=== PATIENT | female | born 1970 | race Hispanic/Latino ===

== ENCOUNTER 2016-06-15 13:35 | Emergency (ER) | payer SELFPAY ==
[~2016-06-15 13:35] MED LIST: Iopamidol 370 76% 100 ML VIAL ONE
[2016-06-15] MEDS ORDERED: Ketorolac Tromethamine 30 MG/ML VIAL ONE (14:19)
[2016-06-15] MEDS ORDERED: Sodium Chloride 0.9% 1,000 ML ONE (14:19)
[2016-06-15 14:39] LABS: Bilirubin Negative (Negative); Blood, Urine Trace (Negative); Glucose, Urine (Dipstick) Negative (Negative); Ketone, Urine Trace mg/dL (Negative); Nitrite Negative (Negative); Protein, Urine (Dipstick) 30 mg/dL (Neg-Trace)
[2016-06-15 14:40] LABS: #Basophils 0.1 thou/uL (0.0-0.2); #Eosinphils 0.2 thou/uL (0.0-0.7); #Monocytes 0.5 thou/uL (0.11-0.59); #Neutrophils 3.3 thou/uL (1.40-6.50); %Basophils 1.4 % (0.0-1.0); %Eosinophils 4.3 % (0.0-10.0); %Lymphocytes 19.4 % (21.0-51.0); %Monocytes 10.3 % (0.0-10.0); Hematocrit 42.9 % (36.0-47.0); Mean Platelet Volume 9.5 fL (7.4-10.4); Red Blood Cell (RBC) Count 5.08 mill/uL (4.20-5.40); White Blood Cell (WBC) Count 5.2 thou/uL (4.8-10.8)
[2016-06-15 14:48] LABS: Bacteria/HPF 2+ HPF (None Seen); RBC/HPF 0-3 HPF (0-3)
[2016-06-15 14:56] LABS: ALT (SGPT) 66 U/L (0-55); AST (SGOT) 47 U/L (5-34); Alkaline Phosphatase 82 U/L (40-150); Anion Gap 18 mmol/L (10-20); BUN (Urea Nitrogen) 10 mg/dL (7.0-18.7); Bilirubin, Total 0.8 mg/dL (0.2-1.2); Calc. Creatinine Clearance 0 mL/min (70-130); Carbon Dioxide 24 mmol/L (22-29); Chloride 101 mmol/L (98-107); Estimated GFR-MDRD 45; Globulin 3.9 g/dL (2.4-3.5); Protein, Total 8.6 g/dL (6.0-8.3)
--- NOTE | 2016-06-15 18:49 | CT ---
CT ANGIO OF THE CHEST: History: Cough, fever, back pain. Comparison: None. Technique: CT angiogram of the chest performed after the intravenous administration of contrast. 3 D imaging provided. FINDINGS: No segmental pulmonary arterial filling defect. No dilatation of the thoracic aorta. Pulmonary rosy nk size is normal. No pericardial effusion. No evidence for aortic dissection. Calcified granuloma anterior segment right lower lobe. No focal consolidation or pneumothorax. Nodule is noted in the medial soft tissues left breast. This appears larger. Skeleton is unremarka ble. Limited evaluation of the upper abdomen is unremarkable. IMPRESSION: 1. No acute intrathoracic abnormality. No embolism. 2. Enlarging well defined nodule in the left medial breast. Mammographic and ultrasound correlatio n recommended. 3. Hepatic steatosis. 4. Calcified right hilar lymph nodes. Prior granulomatous disease is suspected. POS: [facility]
== END 2016-06-15 17:48 | disposition home or self-care (01) ==
LOC: NAV ERS 13:35
DX: S29.012A Strain of muscle and tendon of back wall of thorax, initial encounter (principal); J06.9 Acute upper respiratory infection, unspecified; J45.909 Unspecified asthma, uncomplicated; K21.9 Gastro-esophageal reflux disease without esophagitis; X58.XXXA Exposure to other specified factors, initial encounter
CPT/HCPCS: 71275; 80053; 81003; 81015; 85025; 85379; 87086; 96361; 96374; J1885; J7050

== ENCOUNTER 2016-09-16 08:37 | Emergency (ER) | payer SELFPAY | END 2016-09-16 08:59 | disposition home or self-care (01) | LOC: NAV ERS 08:37 | DX: J20.9 Acute bronchitis, unspecified (principal); J32.0 Chronic maxillary sinusitis; J45.909 Unspecified asthma, uncomplicated; K21.9 Gastro-esophageal reflux disease without esophagitis; Z79.899 Other long term (current) drug therapy | CPT/HCPCS: 99283 ==

== ENCOUNTER 2017-04-20 11:24 | Emergency (ER) | payer SELFPAY | END 2017-04-20 12:14 | disposition home or self-care (01) | LOC: NAV ERS 11:24 | DX: N93.9 Abnormal uterine and vaginal bleeding, unspecified (principal); J45.909 Unspecified asthma, uncomplicated; K21.9 Gastro-esophageal reflux disease without esophagitis | CPT/HCPCS: 99283 ==

== ENCOUNTER 2017-06-02 12:28 | Emergency (ER) | payer SELFPAY | END 2017-06-02 12:47 | disposition home or self-care (01) | LOC: NAV ERS 12:28 | DX: F43.0 Acute stress reaction (principal); K21.9 Gastro-esophageal reflux disease without esophagitis; J45.909 Unspecified asthma, uncomplicated | CPT/HCPCS: 99283 ==

== ENCOUNTER 2017-06-08 13:23 | Emergency (ER) | payer SELFPAY ==
[2017-06-08] MEDS ORDERED: Ibuprofen 200 MG TAB ONE (14:00)
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
== END 2017-06-08 14:29 | disposition home or self-care (01) ==
LOC: NAV ERS 13:23
DX: S16.1XXA Strain of muscle, fascia and tendon at neck level, initial encounter (principal); S29.011A Strain of muscle and tendon of front wall of thorax, initial encounter; K21.9 Gastro-esophageal reflux disease without esophagitis; J45.909 Unspecified asthma, uncomplicated; V44.5XXA Car driver injured in collision with heavy transport vehicle or bus in traffic accident, initial encounter
CPT/HCPCS: 71046

== ENCOUNTER 2017-09-16 10:46 | Emergency (ER) | payer SELFPAY | END 2017-09-16 11:20 | disposition home or self-care (01) | LOC: NAV ERS 10:46 | DX: L04.0 Acute lymphadenitis of face, head and neck (principal); H92.01 Otalgia, right ear; K21.9 Gastro-esophageal reflux disease without esophagitis; J45.909 Unspecified asthma, uncomplicated | CPT/HCPCS: 99283 ==

== ENCOUNTER 2017-10-13 21:48 | Emergency (ER) | payer SELFPAY ==
[2017-10-13] MEDS ORDERED: Adacel (T-DAP) 0.5 ML VIAL ONE (21:56)
--- NOTE | 2017-10-13 22:16 | RAD ---
LEFT FOOT: 10/13/17 Two views. HISTORY: Stepped on foreign body. Assess for foreign body. Small enthesophyte from the plantar calcaneus. No osseous abnormality identified. IMPRESSION: No evidence of radiopaque soft tissue foreign body identified. POS: [facility]
[2017-10-13] MEDS ORDERED: Sulfameth/Trimethoprim DS 800-160mg TAB ONE (22:27)
== END 2017-10-13 22:32 | disposition home or self-care (01) ==
LOC: NAV ERS 21:48
DX: S90.852A Superficial foreign body, left foot, initial encounter (principal); K21.9 Gastro-esophageal reflux disease without esophagitis; J45.909 Unspecified asthma, uncomplicated; W25.XXXA Contact with sharp glass, initial encounter
CPT/HCPCS: 90471; 90715

== ENCOUNTER 2018-01-26 16:33 | Emergency (ER) | payer SELFPAY ==
--- NOTE | 2018-01-26 19:49 | RAD ---
RIGHT HAND 3 VIEWS: Date: 01/26/18 HISTORY: Patient fell off bed a couple of days ago. Difficulty bending right thumb. COMPARISON: None. FINDINGS: No fracture. No cortical irregularity or periosteal reaction. Joint spaces are preserved. IMPRESSION: Unremarkable right hand 3 views. POS: [facility]
== END 2018-01-26 17:06 | disposition home or self-care (01) ==
LOC: NAV ERS 16:33
DX: S63.641A Sprain of metacarpophalangeal joint of right thumb, initial encounter (principal); K21.9 Gastro-esophageal reflux disease without esophagitis; J45.909 Unspecified asthma, uncomplicated; W06.XXXA Fall from bed, initial encounter

== ENCOUNTER 2018-01-30 11:42 | Emergency (ER) | payer SELFPAY ==
--- NOTE | 2018-01-30 12:42 | RAD ---
LEFT SHOULDER THREE VIEWS: HISTORY: Left shoulder pain. Fall. FINDINGS: No acute fracture or dislocation is seen. POS: [facility]
--- NOTE | 2018-01-30 12:45 | RAD ---
RIGHT KNEE FOUR VIEWS: HISTORY: Fall. Right knee pain. FINDINGS: No acute fracture or dislocation is seen. POS: [facility]
== END 2018-01-30 12:43 | disposition home or self-care (01) ==
LOC: NAV ERS 11:42
DX: S43.402A Unspecified sprain of left shoulder joint, initial encounter (principal); S80.01XA Contusion of right knee, initial encounter; K21.9 Gastro-esophageal reflux disease without esophagitis; J45.909 Unspecified asthma, uncomplicated; W18.30XA Fall on same level, unspecified, initial encounter

== ENCOUNTER 2018-07-08 11:32 | Emergency (ER) | payer SELFPAY | END 2018-07-08 12:25 | disposition home or self-care (01) | LOC: NAV ERS 11:32 | DX: M79.10 Myalgia, unspecified site (principal); K21.9 Gastro-esophageal reflux disease without esophagitis; J45.909 Unspecified asthma, uncomplicated | CPT/HCPCS: 99281 ==

== ENCOUNTER 2018-07-22 19:21 | Emergency (ER) | payer SELFPAY ==
[2018-07-22 20:00] LABS: Bilirubin Negative (Negative); Blood, Urine Negative (Negative); Clarity Clear (Clear); Glucose, Urine (Dipstick) >=1000 mg/dL (Negative); Leukocyte Negative (Negative); Nitrite Negative (Negative); Protein, Urine (Dipstick) Trace mg/dL (Neg-Trace); Specific Gravity, Urine 1.025 (1.005-1.030); pH, Urine 5.5 (5.0-9.0)
== END 2018-07-22 21:25 | disposition home or self-care (01) ==
LOC: NAV ERS 19:21
DX: R81 Glycosuria (principal); R73.9 Hyperglycemia, unspecified; K21.9 Gastro-esophageal reflux disease without esophagitis; J45.909 Unspecified asthma, uncomplicated
CPT/HCPCS: 36416; 81003; 99283

== ENCOUNTER 2018-08-05 19:17 | Emergency (ER) | payer SELFPAY | END 2018-08-05 19:50 | disposition home or self-care (01) | LOC: NAV ERS 19:17 | DX: S60.052A Contusion of left little finger without damage to nail, initial encounter (principal); K21.9 Gastro-esophageal reflux disease without esophagitis; J45.909 Unspecified asthma, uncomplicated; W22.8XXA Striking against or struck by other objects, initial encounter; Y93.G3 Activity, cooking and baking | CPT/HCPCS: 99281 ==

== ENCOUNTER 2018-09-09 16:57 | Emergency (ER) | payer SELFPAY | END 2018-09-09 17:20 | disposition home or self-care (01) | LOC: NAV ERS 16:57 | DX: R59.1 Generalized enlarged lymph nodes (principal); J06.9 Acute upper respiratory infection, unspecified; K21.9 Gastro-esophageal reflux disease without esophagitis; J45.909 Unspecified asthma, uncomplicated | CPT/HCPCS: 99283 ==

== ENCOUNTER 2018-09-24 19:38 | Emergency (ER) | payer SELFPAY | END 2018-09-24 19:57 | disposition home or self-care (01) | LOC: NAV ERS 19:38 | DX: R21 Rash and other nonspecific skin eruption (principal); K21.9 Gastro-esophageal reflux disease without esophagitis; J45.909 Unspecified asthma, uncomplicated | CPT/HCPCS: 99281 ==

== ENCOUNTER 2018-11-03 15:07 | Emergency (ER) | payer OTHER, SELFPAY ==
--- NOTE | 2018-11-03 15:40 | RAD ---
3 VIEW RIGHT HAND: Date: 11/03/18 INDICATION: Pain. COMPARISON: 01/26/18. FINDINGS: No fracture, dislocation, or radiopaque foreign body. No significant arthropathy. IMPRESSION: No acute osseous abnormality right hand. POS: [facility]
== END 2018-11-03 16:00 | disposition home or self-care (01) ==
LOC: NAV ERS 15:07
DX: M79.644 Pain in right finger(s) (principal)

== ENCOUNTER 2018-12-31 19:52 | Emergency (ER) | payer SELFPAY ==
[2018-12-31 20:34] LABS: Bilirubin Negative (Negative); Blood, Urine Negative (Negative); Glucose, Urine (Dipstick) 500 mg/dL (Negative); Leukocyte Negative (Negative); Nitrite Negative (Negative); Protein, Urine (Dipstick) Negative (Neg-Trace)
[2018-12-31 20:35] LABS: #Basophils 0.1 thou/uL (0.0-0.2); #Eosinphils 0.2 thou/uL (0.0-0.7); #Lymphocytes 1.9 thou/uL (1.20-3.40); #Monocytes 0.4 thou/uL (0.11-0.59); #Neutrophils 3.6 thou/uL (1.40-6.50); %Basophils 1.1 % (0.0-1.0); %Eosinophils 3.2 % (0.0-10.0); %Lymphocytes 30.1 % (21.0-51.0); %Neutrophils 58.5 % (42.0-75.0); Hemoglobin 12.7 g/dL (12.0-16.0); Mean Corpuscular HGB CONC 32.3 g/dL (32.0-36.0); Mean Corpuscular Hemoglobin 27.5 pg (27.0-31.0); Mean Corpuscular Volume 85.1 fL (78.0-98.0); Mean Platelet Volume 10.3 fL (7.4-10.4); Platelet Count 174 thou/uL (130-400); RBC Distribution Width 12.1 % (11.5-14.5); Red Blood Cell (RBC) Count 4.63 mill/uL (4.20-5.40); White Blood Cell (WBC) Count 6.1 thou/uL (4.8-10.8)
[2018-12-31 20:38] LABS: Clarity SL HAZY (Clear)
[2018-12-31 20:41] LABS: Pregnancy Test - Urine (BHCG) Negative (Negative); Pregu Control Background? CLEAR/WHITE (CLR/WHITE); Pregu Control Bar Appear? YES (CONTROL BAR); Specific Gravity 1.025 (1.002-1.036)
[2018-12-31 20:59] LABS: ALT (SGPT) 34 U/L (8-55); AST (SGOT) 23 U/L (5-34); Albumin 4.5 g/dL (3.5-5.0); Alkaline Phosphatase 100 U/L (40-150); Anion Gap 16 mmol/L (10-20); BUN (Urea Nitrogen) 15 mg/dL (7.0-18.7); Bilirubin, Total 0.5 mg/dL (0.2-1.2); Calc. Creatinine Clearance 0 mL/min (70-130); Calcium 9.7 mg/dL (7.8-10.44); Carbon Dioxide 24 mmol/L (22-29); Chloride 101 mmol/L (98-107); Estimated GFR-MDRD 78; Globulin 3.3 g/dL (2.4-3.5); Glucose 216 mg/dL (70-105); Lipase 23 U/L (8-78); Potassium 3.8 mmol/L (3.5-5.1); Protein, Total 7.8 g/dL (6.0-8.3); Sodium 137 mmol/L (136-145)
[2018-12-31 21:14] LABS: Wet Prep Clue Cells Clue Cells Absent (None Seen); Wet Prep Spermatozoa 2nd Revie Agree with result (None Seen); Wet Prep Trichomonas Trichomonas Absent (None Seen)
[2018-12-31 21:15] LABS: Wet Prep Pathologist Review NonMot Sperm PRESENT (None Seen)
--- NOTE | 2018-12-31 21:48 | RAD ---
CHEST ONE VIEW ABDOMEN TWO VIEWS 12/31/18 HISTORY: Abdominal pain. FINDINGS/IMPRESSION: The heart size is normal. The lungs are expanded without focal areas of consolidation, pneumothoraces , or pleural effusions. A calcified granuloma is seen in the right lower lung. No free air or differe ntial fluid levels are seen. The bowel gas pattern is unremarkable. There is fecal material in the co martita. POS: [facility]
[2019-01-03 00:08] LABS: Chlamydia by PCR Not Detected (NotDetected); GC by PCR Not Detected (NotDetected)
== END 2018-12-31 21:50 | disposition home or self-care (01) ==
LOC: NAV ERS 19:52
DX: K59.00 Constipation, unspecified (principal); N93.9 Abnormal uterine and vaginal bleeding, unspecified; R73.9 Hyperglycemia, unspecified; K21.9 Gastro-esophageal reflux disease without esophagitis; J45.909 Unspecified asthma, uncomplicated
CPT/HCPCS: 74022; 80053; 81003; 81025; 83690; 85025; 87210; 87480; 87491; 87510; 87591; 87660

== ENCOUNTER 2019-04-27 18:21 | Emergency (ER) | payer SELFPAY | END 2019-04-27 19:05 | disposition home or self-care (01) | LOC: NAV ERS 18:21 | DX: S83.421A Sprain of lateral collateral ligament of right knee, initial encounter (principal); K21.9 Gastro-esophageal reflux disease without esophagitis; J45.909 Unspecified asthma, uncomplicated; X50.9XXA Other and unspecified overexertion or strenuous movements or postures, initial encounter | CPT/HCPCS: 99283 ==

== ENCOUNTER 2019-04-29 11:04 | Emergency (ER) | payer SELFPAY | END 2019-04-29 11:40 | disposition home or self-care (01) | LOC: NAV ERS 11:04 | DX: J06.9 Acute upper respiratory infection, unspecified (principal); B34.9 Viral infection, unspecified; K21.9 Gastro-esophageal reflux disease without esophagitis; J45.909 Unspecified asthma, uncomplicated | CPT/HCPCS: 99283 ==

== ENCOUNTER 2019-07-10 10:50 | Emergency (ER) | payer SELFPAY ==
[2019-07-10 11:27] LABS: Bilirubin Negative (Negative); Blood, Urine Negative (Negative); Clarity Clear (Clear); Glucose, Urine (Dipstick) Negative (Negative); Leukocyte Trace (Negative); Nitrite Positive (Negative); Protein, Urine (Dipstick) Negative (Neg-Trace); Urobilinogen 0.2 mg/dL (Less than 2)
[2019-07-10 11:28] LABS: Pregnancy Test - Urine (BHCG) Negative (Negative); Pregu Control Background? CLEAR/WHITE (CLR/WHITE); Pregu Control Bar Appear? YES (CONTROL BAR); Specific Gravity 1.025 (1.002-1.036)
[2019-07-10 11:28] LABS: Bacteria/HPF Rare-Few HPF (None Seen); RBC/HPF 0-3 HPF (0-3)
== END 2019-07-10 12:00 | disposition home or self-care (01) ==
LOC: NAV ERS 10:50
DX: N39.0 Urinary tract infection, site not specified (principal); K21.9 Gastro-esophageal reflux disease without esophagitis; J45.909 Unspecified asthma, uncomplicated; R19.7 Diarrhea, unspecified; Z79.51 Long term (current) use of inhaled steroids
CPT/HCPCS: 81003; 81015; 81025; 87086; 99284

== ENCOUNTER 2019-07-14 13:51 | Emergency (ER) | payer SELFPAY | END 2019-07-14 15:15 | disposition home or self-care (01) | LOC: NAV ERS 13:51 | DX: J06.9 Acute upper respiratory infection, unspecified (principal); J45.909 Unspecified asthma, uncomplicated; K21.9 Gastro-esophageal reflux disease without esophagitis | CPT/HCPCS: 87081; 87430; 87804; 99283 ==

== ENCOUNTER 2019-10-17 12:56 | Emergency (ER) | payer OTHER, SELFPAY ==
[2019-10-17] MEDS ORDERED: Acetaminophen 500 MG TAB ONE (14:04)
== END 2019-10-17 14:09 | disposition home or self-care (01) ==
LOC: NAV ERS 12:56
DX: R51 Headache (principal); R50.9 Fever, unspecified; M79.10 Myalgia, unspecified site; Z20.828 Contact with and (suspected) exposure to other viral communicable diseases; K21.9 Gastro-esophageal reflux disease without esophagitis; J45.909 Unspecified asthma, uncomplicated
CPT/HCPCS: 87635; 99284; U0003

== ENCOUNTER 2019-10-21 15:06 | Emergency (ER) | payer OTHER, SELFPAY ==
[2019-10-21] MEDS ORDERED: Ondansetron PF 4 MG/2 ML Vial ONE (15:58)
[2019-10-21 16:15] LABS: Bilirubin Negative (Negative); Blood, Urine Negative (Negative); Clarity Clear (Clear); Glucose, Urine (Dipstick) Negative (Negative); Leukocyte Trace (Negative); Nitrite Negative (Negative); Protein, Urine (Dipstick) Negative (Neg-Trace); Urobilinogen 0.2 mg/dL (Less than 2)
[2019-10-21 16:17] LABS: #Eosinphils 0.1 thou/uL (0.0-0.7); #Lymphocytes 1.2 thou/uL (1.20-3.40); #Monocytes 0.3 thou/uL (0.11-0.59); #Neutrophils 2.8 thou/uL (1.40-6.50); %Basophils 0.7 % (0.0-1.0); %Eosinophils 1.7 % (0.0-10.0); %Lymphocytes 26.2 % (21.0-51.0); %Monocytes 7.5 % (0.0-10.0); Hemoglobin 13.5 g/dL (12.0-16.0); Mean Corpuscular HGB CONC 31.9 g/dL (32.0-36.0); Mean Corpuscular Hemoglobin 28.1 pg (27.0-31.0); Mean Corpuscular Volume 88.1 fL (78.0-98.0); Platelet Count 170 thou/uL (130-400); RBC Distribution Width 11.5 % (11.5-14.5); Red Blood Cell (RBC) Count 4.81 mill/uL (4.20-5.40); White Blood Cell (WBC) Count 4.4 thou/uL (4.8-10.8)
[2019-10-21 16:23] LABS: Pregnancy Test - Urine (BHCG) Negative (Negative); Pregu Control Background? CLEAR/WHITE (CLR/WHITE); Pregu Control Bar Appear? YES (CONTROL BAR)
[2019-10-21 16:25] LABS: Squamous Epithelial 0-3 HPF (0-3); WBC/HPF 0-3 HPF (0-3); Yeast-Budding Rare HPF (None Seen)
[2019-10-21 16:30] LABS: ALT (SGPT) 63 U/L (8-55); AST (SGOT) 43 U/L (5-34); Albumin 4.6 g/dL (3.5-5.0); Alkaline Phosphatase 85 U/L (40-110); Anion Gap 15 mmol/L (10-20); BUN (Urea Nitrogen) 9 mg/dL (7.0-18.7); Bilirubin, Total 0.3 mg/dL (0.2-1.2); Calc. Creatinine Clearance 0 mL/min (70-130); Calcium 9.7 mg/dL (7.8-10.44); Carbon Dioxide 26 mmol/L (22-29); Chloride 101 mmol/L (98-107); Estimated GFR-MDRD 85; Globulin 3.9 g/dL (2.4-3.5); Glucose 151 mg/dL (70-105); Potassium 4.2 mmol/L (3.5-5.1); Protein, Total 8.5 g/dL (6.0-8.3); Sodium 138 mmol/L (136-145)
== END 2019-10-21 17:00 | disposition home or self-care (01) ==
LOC: NAV ERS 15:06
DX: E86.9 Volume depletion, unspecified (principal); R11.0 Nausea; Z20.828 Contact with and (suspected) exposure to other viral communicable diseases
CPT/HCPCS: 80053; 81003; 81015; 81025; 85025; 96361; 96374; J2405

== ENCOUNTER 2020-01-20 09:22 | Emergency (ER) | payer SELFPAY | END 2020-01-20 10:00 | disposition home or self-care (01) | LOC: NAV ERS 09:22 | DX: J02.9 Acute pharyngitis, unspecified (principal); K21.9 Gastro-esophageal reflux disease without esophagitis; G43.909 Migraine, unspecified, not intractable, without status migrainosus; J45.909 Unspecified asthma, uncomplicated | CPT/HCPCS: 99282 ==

== ENCOUNTER 2020-02-03 15:23 | Emergency (ER) | payer SELFPAY | END 2020-02-03 15:53 | disposition home or self-care (01) | LOC: NAV ERS 15:23 | DX: M79.604 Pain in right leg (principal); I10 Essential (primary) hypertension; K21.9 Gastro-esophageal reflux disease without esophagitis; G43.909 Migraine, unspecified, not intractable, without status migrainosus; J45.909 Unspecified asthma, uncomplicated | CPT/HCPCS: 99281 ==

== ENCOUNTER 2020-02-13 19:08 | Emergency (ER) | payer SELFPAY ==
[2020-02-13] MEDS ORDERED: Sulfameth/Trimethoprim DS 800-160mg TAB ONE (19:33)
== END 2020-02-13 19:39 | disposition home or self-care (01) ==
LOC: NAV ERS 19:08
DX: L03.116 Cellulitis of left lower limb (principal); K21.9 Gastro-esophageal reflux disease without esophagitis; G43.909 Migraine, unspecified, not intractable, without status migrainosus; J45.909 Unspecified asthma, uncomplicated
CPT/HCPCS: 99283

== ENCOUNTER 2020-02-22 08:14 | Emergency (ER) | payer OTHER, SELFPAY ==
[2020-02-22 16:55] LABS: SARS-CoV-2 MS2 Positive; SARS-CoV-2 N Gene Negative; SARS-CoV-2 S Gene Negative; SARS-CoV-2 by NAA Not Detected (NotDetected); SARS-CoV-2 orf1ab Negative
== END 2020-02-22 09:15 | disposition home or self-care (01) ==
LOC: NAV ERS 08:14
DX: J06.9 Acute upper respiratory infection, unspecified (principal); R19.7 Diarrhea, unspecified; R11.2 Nausea with vomiting, unspecified; Z20.828 Contact with and (suspected) exposure to other viral communicable diseases; K21.9 Gastro-esophageal reflux disease without esophagitis; G43.909 Migraine, unspecified, not intractable, without status migrainosus; J45.909 Unspecified asthma, uncomplicated
CPT/HCPCS: 87635; 87804; 99284; U0003

== ENCOUNTER 2020-05-31 11:56 | Emergency (ER) | payer OTHER, SELFPAY | END 2020-05-31 12:35 | disposition home or self-care (01) | LOC: NAV ERS 11:56 | DX: K04.7 Periapical abscess without sinus (principal); K02.9 Dental caries, unspecified; K21.9 Gastro-esophageal reflux disease without esophagitis; G43.909 Migraine, unspecified, not intractable, without status migrainosus; J45.909 Unspecified asthma, uncomplicated | CPT/HCPCS: 99283 ==

== ENCOUNTER 2020-08-08 09:29 | Emergency (ER) | payer SELFPAY ==
[2020-08-08 21:22] LABS: SARS-CoV-2 PCR by NAA Not Detected (NotDetected)
== END 2020-08-08 10:20 | disposition home or self-care (01) ==
LOC: NAV ERS 09:29
DX: K04.7 Periapical abscess without sinus (principal); K02.9 Dental caries, unspecified; R19.7 Diarrhea, unspecified; R50.9 Fever, unspecified; Z20.822 Contact with and (suspected) exposure to COVID-19; K21.9 Gastro-esophageal reflux disease without esophagitis; G43.909 Migraine, unspecified, not intractable, without status migrainosus
CPT/HCPCS: 87635; 99284; U0003; U0005

== ENCOUNTER 2020-08-20 13:43 | Emergency (ER) | payer OTHER, SELFPAY ==
[2020-08-21 06:59] LABS: SARS-CoV-2 PCR by NAA Not Detected (NotDetected)
== END 2020-08-20 14:20 | disposition home or self-care (01) ==
LOC: NAV ERS 13:43
DX: J06.9 Acute upper respiratory infection, unspecified (principal); Z20.822 Contact with and (suspected) exposure to COVID-19; K21.9 Gastro-esophageal reflux disease without esophagitis; G43.909 Migraine, unspecified, not intractable, without status migrainosus
CPT/HCPCS: 87635; 99283; U0003; U0005

== ENCOUNTER 2020-10-15 20:40 | Emergency (ER) | payer SELFPAY ==
[2020-10-15] MEDS ORDERED: AMOXicillin 250 MG CAP ONE (21:28)
== END 2020-10-15 21:30 | disposition home or self-care (01) ==
LOC: NAV ERS 20:40
DX: J02.0 Streptococcal pharyngitis (principal); K21.9 Gastro-esophageal reflux disease without esophagitis; J45.909 Unspecified asthma, uncomplicated
CPT/HCPCS: 99282

== ENCOUNTER 2021-04-30 06:56 | Emergency (ER) | payer SELFPAY ==
[2021-04-30] MEDS ORDERED: Ondansetron ODT 4 MG TAB ONE (07:53)
[2021-04-30 19:36] LABS: SARS-CoV-2 PCR by NAA DETECTED (NotDetected)
== END 2021-04-30 08:00 | disposition home or self-care (01) ==
LOC: NAV ERS 06:56
DX: U07.1 COVID-19 (principal); K21.9 Gastro-esophageal reflux disease without esophagitis; G43.909 Migraine, unspecified, not intractable, without status migrainosus; J45.909 Unspecified asthma, uncomplicated
CPT/HCPCS: 99284; Q0162; U0003; U0005

== ENCOUNTER 2021-06-16 11:43 | Emergency (ER) | payer OTHER, SELFPAY ==
[2021-06-16 12:41] LABS: #Basophils 0.1 thou/uL (0.0-0.2); #Eosinphils 0.2 thou/uL (0.0-0.7); #Monocytes 0.5 thou/uL (0.11-0.59); %Basophils 0.8 % (0.0-1.0); %Eosinophils 2.8 % (0.0-10.0); %Lymphocytes 13.1 % (21.0-51.0); %Monocytes 6.3 % (0.0-10.0); Mean Corpuscular HGB CONC 32.5 g/dL (32.0-36.0); Mean Corpuscular Hemoglobin 28.7 pg (27.0-31.0); Mean Corpuscular Volume 88.4 fL (78.0-98.0); Mean Platelet Volume 10.9 fL (7.4-10.4); Platelet Count 182 thou/uL (130-400); RBC Distribution Width 11.8 % (11.5-14.5); Red Blood Cell (RBC) Count 4.88 mill/uL (4.20-5.40); White Blood Cell (WBC) Count 7.8 thou/uL (4.8-10.8)
[2021-06-16 13:00] LABS: ALT (SGPT) 40 U/L (8-55); AST (SGOT) 27 U/L (5-34); Albumin 4.5 g/dL (3.5-5.0); Alkaline Phosphatase 86 U/L (40-110); Anion Gap 14 mmol/L (10-20); BUN (Urea Nitrogen) 14 mg/dL (9.8-20.1); Bilirubin, Total 0.9 mg/dL (0.2-1.2); CK (CPK) 40 U/L (29-168); Calc. Creatinine Clearance 0 mL/min (70-130); Calcium 9.6 mg/dL (7.8-10.44); Carbon Dioxide 26 mmol/L (22-29); Chloride 103 mmol/L (98-107); Globulin 3.3 g/dL (2.4-3.5); Glucose 149 mg/dL (70-105); Potassium 3.7 mmol/L (3.5-5.1); Protein, Total 7.8 g/dL (6.0-8.3); Sodium 139 mmol/L (136-145)
== END 2021-06-16 13:50 | disposition home or self-care (01) ==
LOC: NAV ERS 11:43
DX: R53.83 Other fatigue (principal); K21.9 Gastro-esophageal reflux disease without esophagitis; G43.909 Migraine, unspecified, not intractable, without status migrainosus; J45.909 Unspecified asthma, uncomplicated
CPT/HCPCS: 71046; 80053; 82550; 84443; 84484; 85025; 93005; 94760

== ENCOUNTER 2021-06-21 18:47 | Emergency (ER) | payer SELFPAY ==
[2021-06-21 19:11] LABS: Bilirubin Negative (Negative); Blood, Urine Negative (Negative); Clarity Slightly Cloudy (Clear); Glucose, Urine (Dipstick) 100 mg/dL (Negative); Ketone, Urine Negative (Negative); Leukocyte Small (Negative); Nitrite Negative (Negative); Protein, Urine (Dipstick) Negative (Neg-Trace); pH, Urine 5.5 (5.0-9.0)
[2021-06-21 19:12] LABS: Specific Gravity, Urine 1.023 (1.002-1.036)
[2021-06-21 19:14] LABS: RBC/HPF 0-3 HPF (0-3)
[2021-06-21 19:15] LABS: Bacteria/HPF 1+ HPF (None Seen)
[2021-06-21 19:42] LABS: #Basophils 0.1 thou/uL (0.0-0.2); #Eosinphils 0.2 thou/uL (0.0-0.7); #Lymphocytes 2.3 thou/uL (1.20-3.40); #Monocytes 0.3 thou/uL (0.11-0.59); #Neutrophils 3.5 thou/uL (1.40-6.50); %Basophils 1.3 % (0.0-1.0); %Eosinophils 2.9 % (0.0-10.0); %Lymphocytes 35.5 % (21.0-51.0); %Monocytes 5.3 % (0.0-10.0); %Neutrophils 54.9 % (42.0-75.0); Hemoglobin 13.7 g/dL (12.0-16.0); Mean Corpuscular HGB CONC 33.4 g/dL (32.0-36.0); Mean Corpuscular Hemoglobin 29.1 pg (27.0-31.0); Mean Corpuscular Volume 87.1 fL (78.0-98.0); Platelet Count 185 thou/uL (130-400); RBC Distribution Width 11.8 % (11.5-14.5); Red Blood Cell (RBC) Count 4.69 mill/uL (4.20-5.40); White Blood Cell (WBC) Count 6.4 thou/uL (4.8-10.8)
[2021-06-21 20:00] LABS: ALT (SGPT) 65 U/L (8-55); AST (SGOT) 43 U/L (5-34); Albumin 4.6 g/dL (3.5-5.0); Alkaline Phosphatase 116 U/L (40-110); Anion Gap 14 mmol/L (10-20); BUN (Urea Nitrogen) 13 mg/dL (9.8-20.1); Bilirubin, Total 0.4 mg/dL (0.2-1.2); Calc. Creatinine Clearance 0 mL/min (70-130); Calcium 9.6 mg/dL (7.8-10.44); Carbon Dioxide 24 mmol/L (22-29); Chloride 107 mmol/L (98-107); Globulin 3.6 g/dL (2.4-3.5); Glucose 168 mg/dL (70-105); Lipase 34 U/L (8-78); Protein, Total 8.2 g/dL (6.0-8.3); Sodium 141 mmol/L (136-145)
== END 2021-06-21 21:07 | disposition short-term general hospital (02) ==
LOC: NAV ERS 18:47
DX: R10.11 Right upper quadrant pain (principal); K21.9 Gastro-esophageal reflux disease without esophagitis; J45.909 Unspecified asthma, uncomplicated
CPT/HCPCS: 80053; 81003; 81015; 83690; 85025; 99284

== ENCOUNTER 2021-08-27 13:56 | Emergency (ER) | payer SELFPAY ==
[2021-08-27] MEDS ORDERED: Lidocaine Viscous Sol 2% 15 ml UD Cup ONE (14:36)
== END 2021-08-27 15:45 | disposition home or self-care (01) ==
LOC: NAV ERS 13:56
DX: K04.7 Periapical abscess without sinus (principal); K21.9 Gastro-esophageal reflux disease without esophagitis; J45.909 Unspecified asthma, uncomplicated
CPT/HCPCS: 41008

== ENCOUNTER 2021-10-11 15:18 | Emergency (ER) | payer SELFPAY | END 2021-10-11 15:50 | disposition home or self-care (01) | LOC: NAV ERS 15:18 | DX: K04.7 Periapical abscess without sinus (principal); K02.9 Dental caries, unspecified; K03.81 Cracked tooth; K21.9 Gastro-esophageal reflux disease without esophagitis; J45.909 Unspecified asthma, uncomplicated | CPT/HCPCS: 99282 ==

== ENCOUNTER 2021-11-25 23:15 | Emergency (ER) | payer SELFPAY ==
[2021-11-25 23:47] LABS: Bilirubin Small (Negative); Blood, Urine Large (Negative); Glucose, Urine (Dipstick) 250 mg/dL (Negative); Ketone, Urine 15 mg/dL (Negative); Leukocyte Large (Negative); Nitrite Positive (Negative); Protein, Urine (Dipstick) > or equal to 300 mg/dL (Neg-Trace); Specific Gravity, Urine 1.025 (1.005-1.030)
[2021-11-25 23:52] LABS: Clarity Cloudy (Clear)
[2021-11-25 23:59] LABS: Bacteria/HPF 3+ HPF (None Seen)
[2021-11-26] MEDS ORDERED: Cipro 250 MG TAB ONE (00:11)
[2021-11-26] MEDS ORDERED: Ketorolac Tromethamine 60 MG/2 ML VIAL ONE (00:11)
== END 2021-11-26 00:30 | disposition home or self-care (01) ==
LOC: NAV ERS 23:15
DX: N39.0 Urinary tract infection, site not specified (principal); K21.9 Gastro-esophageal reflux disease without esophagitis; G43.909 Migraine, unspecified, not intractable, without status migrainosus
CPT/HCPCS: 81003; 81015; 87077; 87086; 87186; 96372; 99283; J1885

== ENCOUNTER 2021-12-01 19:14 | Emergency (ER) | payer SELFPAY ==
[2021-12-01 19:59] LABS: Clarity Hazy (Clear); Specific Gravity, Urine 1.022 (1.005-1.030)
[2021-12-01 20:03] LABS: Bacteria/HPF 2+ HPF (None Seen); RBC/HPF 0-3 HPF (0-3); Squamous Epithelial 0-3 HPF (0-3); WBC/HPF 0-3 HPF (0-3)
[2021-12-01 20:04] LABS: Amphetamine Not Detected (NotDetected); Barbiturates Screen Not Detected (NotDetected); Benzodiazepine Screen Not Detected (NotDetected); Cocaine Metabolite Screen Not Detected (NotDetected); Medtox Control Line Valid? VALID (VALID); Methadone Not Detected (NotDetected); Methamphetamine Not Detected (NotDetected); Opiate Screen Not Detected (NotDetected); Oxycodone Screen Not Detected (NotDetected); Phencyclidine (PCP) Not Detected (NotDetected); THC/Cannabinoid Screen Not Detected (NotDetected); Tricyclic Screen Not Detected (NotDetected)
== END 2021-12-01 20:31 | disposition home or self-care (01) ==
LOC: NAV ERS 19:14
DX: N32.89 Other specified disorders of bladder (principal); K21.9 Gastro-esophageal reflux disease without esophagitis; G43.909 Migraine, unspecified, not intractable, without status migrainosus
CPT/HCPCS: 80306; 81003; 81015; 99284

== ENCOUNTER 2021-12-31 14:49 | Emergency (ER) | payer SELFPAY ==
[2021-12-31 15:20] LABS: Clarity Clear (Clear); Specific Gravity, Urine 1.028 (1.002-1.036)
[2021-12-31 15:22] LABS: Bacteria/HPF 1+ HPF (None Seen); RBC/HPF None Seen HPF (0-3); WBC/HPF 0-3 HPF (0-3)
== END 2021-12-31 15:44 | disposition home or self-care (01) ==
LOC: NAV ERS 14:49
DX: N30.00 Acute cystitis without hematuria (principal); K21.9 Gastro-esophageal reflux disease without esophagitis; G43.909 Migraine, unspecified, not intractable, without status migrainosus
CPT/HCPCS: 81003; 81015; 87086; 99284

== ENCOUNTER 2022-02-11 10:54 | Emergency (ER) | payer SELFPAY | END 2022-02-11 12:27 | disposition home or self-care (01) | LOC: NAV ERS 10:54 | DX: K04.7 Periapical abscess without sinus (principal); J06.9 Acute upper respiratory infection, unspecified; K21.9 Gastro-esophageal reflux disease without esophagitis; G43.909 Migraine, unspecified, not intractable, without status migrainosus | CPT/HCPCS: 99283 ==

== ENCOUNTER 2022-03-12 19:53 | Emergency (ER) | payer SELFPAY ==
[2022-03-12] MEDS ORDERED: Ibuprofen 200 MG TAB ONE (21:04)
== END 2022-03-12 21:30 | disposition home or self-care (01) ==
LOC: NAV ERS 19:53
DX: S63.615A Unspecified sprain of left ring finger, initial encounter (principal); K21.9 Gastro-esophageal reflux disease without esophagitis; G43.909 Migraine, unspecified, not intractable, without status migrainosus; J45.909 Unspecified asthma, uncomplicated; Z79.899 Other long term (current) drug therapy; X50.0XXA Overexertion from strenuous movement or load, initial encounter

== ENCOUNTER 2022-05-01 15:34 | Emergency (ER) | payer SELFPAY | END 2022-05-01 16:21 | disposition home or self-care (01) | LOC: NAV ERS 15:34 | DX: J02.9 Acute pharyngitis, unspecified (principal); K21.9 Gastro-esophageal reflux disease without esophagitis; J45.909 Unspecified asthma, uncomplicated; Z79.899 Other long term (current) drug therapy | CPT/HCPCS: 87081; 87430; 99283 ==

== ENCOUNTER 2022-05-29 18:25 | Emergency (ER) | payer SELFPAY ==
[2022-05-29] MEDS ORDERED: Ipratropium/Albuterol 3 ML NEB ONE (19:16)
[2022-05-29] MEDS ORDERED: Acetaminophen 500 MG TAB ONE (19:40)
== END 2022-05-29 19:46 | disposition home or self-care (01) ==
LOC: NAV ERS 18:25
DX: J20.9 Acute bronchitis, unspecified (principal); K21.9 Gastro-esophageal reflux disease without esophagitis; J45.909 Unspecified asthma, uncomplicated; Z79.899 Other long term (current) drug therapy
CPT/HCPCS: J7620

== ENCOUNTER 2022-06-04 10:30 | Emergency (ER) | payer SELFPAY | END 2022-06-04 11:20 | disposition home or self-care (01) | LOC: NAV ERS 10:30 | DX: J20.9 Acute bronchitis, unspecified (principal); K21.9 Gastro-esophageal reflux disease without esophagitis; J45.909 Unspecified asthma, uncomplicated | CPT/HCPCS: 99283 ==

== ENCOUNTER 2023-01-10 11:36 | Emergency (ER) | payer SELFPAY ==
[2023-01-10] MEDS ORDERED: Ibuprofen 200 MG TAB ONE (11:55)
[2023-01-10] MEDS ORDERED: ANTIVENIN,CROTALIDAE (ANAVIP) 1 EACH VIAL ONE (12:00)
== END 2023-01-10 12:03 | disposition home or self-care (01) ==
LOC: NAV ERS 11:36
DX: K02.9 Dental caries, unspecified (principal)
CPT/HCPCS: 99282; J0841

== ENCOUNTER 2023-02-20 09:38 | Emergency (ER) | payer SELFPAY ==
[2023-02-20] MEDS ORDERED: Ketorolac Tromethamine 30 MG/ML VIAL ONE (10:20)
[2023-02-20 10:24] LABS: #Basophils 0.1 thou/uL (0.0-0.2); #Eosinphils 0.2 thou/uL (0.0-0.7); #Lymphocytes 1.6 thou/uL (1.20-3.40); #Monocytes 0.3 thou/uL (0.11-0.59); #Neutrophils 2.9 thou/uL (1.40-6.50); %Basophils 1.3 % (0.0-1.0); %Eosinophils 4.4 % (0.0-10.0); %Monocytes 6.7 % (0.0-10.0); %Neutrophils 56.6 % (42.0-75.0); Hematocrit 41.3 % (36.0-47.0); Hemoglobin 13.5 g/dL (12.0-16.0); Mean Corpuscular HGB CONC 32.8 g/dL (32.0-36.0); Mean Corpuscular Hemoglobin 28.9 pg (27.0-31.0); Mean Corpuscular Volume 88.2 fl (78.0-98.0); Mean Platelet Volume 10.6 fL (7.4-10.4); Platelet Count 171 10x3/uL (130-400); Red Blood Cell (RBC) Count 4.68 mill/uL (4.20-5.40); White Blood Cell (WBC) Count 5.1 10x3/uL (4.8-10.8)
[2023-02-20 10:38] LABS: Anion Gap 14 mmol/L (10-20); BUN (Urea Nitrogen) 14 mg/dL (9.8-20.1); Calc. Creatinine Clearance 0 mL/min (70-130); Carbon Dioxide 25 mmol/L (22-29); Chloride 104 mmol/L (98-107); Potassium 4.2 mmol/L (3.5-5.1); Sodium 139 mmol/L (136-145)
[2023-02-20 10:39] LABS: ALT (SGPT) 40 U/L (8-55); AST (SGOT) 30 U/L (5-34); Albumin 4.5 g/dL (3.5-5.0); Alkaline Phosphatase 99 U/L (40-110); Bilirubin, Total 0.8 mg/dL (0.2-1.2); Calcium 9.6 mg/dL (7.8-10.44); Estimated GFR 81; Globulin 3.4 g/dL (2.4-3.5); Glucose 223 mg/dL (70-105); Protein, Total 7.9 g/dL (6.0-8.3)
== END 2023-02-20 11:05 | disposition home or self-care (01) ==
LOC: NAV ERS 09:38
DX: M54.12 Radiculopathy, cervical region (principal); J45.909 Unspecified asthma, uncomplicated; Z79.899 Other long term (current) drug therapy
CPT/HCPCS: 80053; 85025; 96374; J1885

== ENCOUNTER 2023-03-19 09:28 | Emergency (ER) | payer SELFPAY | END 2023-03-19 10:35 | disposition home or self-care (01) | LOC: NAV ERS 09:28 | DX: J00 Acute nasopharyngitis [common cold] (principal); J45.909 Unspecified asthma, uncomplicated | CPT/HCPCS: 99282 ==

== ENCOUNTER 2023-04-22 09:22 | Emergency (ER) | payer SELFPAY ==
[2023-04-22] MEDS ORDERED: Sodium Chloride 0.9% 1,000 ML ONE (10:16)
[2023-04-22] MEDS ORDERED: Ibuprofen 200 MG TAB ONE (10:16)
[2023-04-22 10:17] LABS: #Basophils 0.1 thou/uL (0.0-0.2); #Eosinphils 0.2 thou/uL (0.0-0.7); #Lymphocytes 1.7 thou/uL (1.20-3.40); #Monocytes 0.3 thou/uL (0.11-0.59); #Neutrophils 2.6 thou/uL (1.40-6.50); %Basophils 1.7 % (0.0-1.0); %Eosinophils 3.9 % (0.0-10.0); %Monocytes 6.8 % (0.0-10.0); %Neutrophils 53.7 % (42.0-75.0); Hematocrit 42.3 % (36.0-47.0); Mean Corpuscular HGB CONC 33.2 g/dL (32.0-36.0); Mean Corpuscular Hemoglobin 28.8 pg (27.0-31.0); Mean Corpuscular Volume 86.8 fl (78.0-98.0); Mean Platelet Volume 10.5 fL (7.4-10.4); Platelet Count 155 10x3/uL (130-400); RBC Distribution Width 11.9 % (11.5-14.5); Red Blood Cell (RBC) Count 4.87 mill/uL (4.20-5.40); White Blood Cell (WBC) Count 4.9 10x3/uL (4.8-10.8)
[2023-04-22 10:26] LABS: Bilirubin Negative (Negative); Blood, Urine Negative (Negative); Clarity Clear (Clear); Glucose, Urine (Dipstick) Negative (Negative); Ketone, Urine Negative (Negative); Leukocyte Negative (Negative); Nitrite Negative (Negative); Protein, Urine (Dipstick) Negative (Neg-Trace); Urobilinogen 0.2 mg/dL (Less than 2)
[2023-04-22 10:35] LABS: ALT (SGPT) 56 U/L (8-55); AST (SGOT) 34 U/L (5-34); Albumin 4.4 g/dL (3.5-5.0); Alkaline Phosphatase 99 U/L (40-110); Anion Gap 12 mmol/L (10-20); BUN (Urea Nitrogen) 10 mg/dL (9.8-20.1); Bilirubin, Total 0.7 mg/dL (0.2-1.2); Calc. Creatinine Clearance 0 mL/min (70-130); Calcium 9.4 mg/dL (7.8-10.44); Carbon Dioxide 25 mmol/L (22-29); Chloride 103 mmol/L (98-107); Estimated GFR 105; Globulin 3.4 g/dL (2.4-3.5); Glucose 185 mg/dL (70-105); Potassium 4.3 mmol/L (3.5-5.1); Protein, Total 7.8 g/dL (6.0-8.3); Sodium 136 mmol/L (136-145)
[2023-04-22 10:39] LABS: Bacteria/HPF None Seen HPF (None Seen); CAUTI Indications for Culture Dysuria,urgency,freq; RBC/HPF None Seen HPF (0-3); Squamous Epithelial None Seen HPF (0-3); WBC/HPF None Seen HPF (0-3)
[2023-04-22 10:40] LABS: Urine Culture Reflex No No
== END 2023-04-22 11:40 | disposition home or self-care (01) ==
LOC: NAV ERS 09:22
DX: B34.9 Viral infection, unspecified (principal); E86.9 Volume depletion, unspecified; R73.9 Hyperglycemia, unspecified; J45.909 Unspecified asthma, uncomplicated; Z79.899 Other long term (current) drug therapy
CPT/HCPCS: 80053; 81001; 84443; 84484; 85025; 87804; 93005; 96360; J7050

== ENCOUNTER 2023-07-17 19:57 | Emergency (ER) | payer SELFPAY ==
[2023-07-17] MEDS ORDERED: Amoxicillin/Potassium Clav 875 MG TAB ONE (20:51)
[2023-07-17] MEDS ORDERED: Acetaminophen 500 MG TAB ONE (20:52)
== END 2023-07-17 21:33 | disposition home or self-care (01) ==
LOC: NAV ERS 19:57
DX: K08.89 Other specified disorders of teeth and supporting structures (principal); K04.7 Periapical abscess without sinus; R50.9 Fever, unspecified
CPT/HCPCS: 99282

== ENCOUNTER 2023-10-13 22:33 | Emergency (ER) | payer OTHER ==
[2023-10-13] MEDS ORDERED: Ibuprofen 200 MG TAB ONE (22:56)
== END 2023-10-13 23:04 | disposition home or self-care (01) ==
LOC: NAV ERS 22:33
DX: M43.6 Torticollis (principal)

== ENCOUNTER 2023-10-14 10:57 | Emergency (ER) | payer OTHER | END 2023-10-14 12:39 | disposition home or self-care (01) | LOC: NAV ERS 10:57 | DX: S16.1XXA Strain of muscle, fascia and tendon at neck level, initial encounter (principal); M43.6 Torticollis; R03.0 Elevated blood-pressure reading, without diagnosis of hypertension; X58.XXXA Exposure to other specified factors, initial encounter | CPT/HCPCS: 93005 ==

== ENCOUNTER 2023-11-23 12:17 | Emergency (ER) | payer OTHER | END 2023-11-23 12:40 | disposition home or self-care (01) | LOC: NAV ERS 12:17 | DX: K04.7 Periapical abscess without sinus (principal) | CPT/HCPCS: 99282 ==

== ENCOUNTER 2023-11-29 10:42 | Emergency (ER) | payer OTHER ==
[2023-11-29 12:05] LABS: SARS-CoV-2 E Target Negative; SARS-CoV-2 N2 Target Negative; SARS-CoV-2 NAA Rapid Test Not Detected (NotDetected); SARS-CoV-2 RdRP gene Negative
== END 2023-11-29 12:45 | disposition home or self-care (01) ==
LOC: NAV ERS 10:42
DX: B34.9 Viral infection, unspecified (principal); J06.9 Acute upper respiratory infection, unspecified
CPT/HCPCS: 99283; U0002

== ENCOUNTER 2024-01-01 16:42 | Emergency (ER) | payer OTHER ==
[2024-01-01 17:29] LABS: #Basophils 0.1 thou/uL (0.0-0.2); #Eosinphils 0.3 thou/uL (0.0-0.7); #Lymphocytes 1.9 thou/uL (1.20-3.40); #Monocytes 0.4 thou/uL (0.11-0.59); #Neutrophils 4.4 thou/uL (1.40-6.50); %Basophils 1.1 % (0.0-1.0); %Eosinophils 3.7 % (0.0-10.0); %Lymphocytes 26.6 % (21.0-51.0); %Monocytes 6.2 % (0.0-10.0); %Neutrophils 62.4 % (42.0-75.0); Hematocrit 40.9 % (36.0-47.0); Hemoglobin 13.2 g/dL (12.0-16.0); Mean Corpuscular HGB CONC 32.4 g/dL (32.0-36.0); Mean Corpuscular Hemoglobin 27.4 pg (27.0-31.0); Mean Corpuscular Volume 84.5 fl (78.0-98.0); Mean Platelet Volume 10.5 fL (7.4-10.4); Platelet Count 161 10x3/uL (130-400); RBC Distribution Width 11.5 % (11.5-14.5); Red Blood Cell (RBC) Count 4.84 mill/uL (4.20-5.40)
[2024-01-01 17:44] LABS: ALT (SGPT) 24 U/L (8-55); AST (SGOT) 18 U/L (5-34); Albumin 4.3 g/dL (3.5-5.0); Alkaline Phosphatase 87 U/L (40-110); Anion Gap 14 mmol/L (10-20); BUN (Urea Nitrogen) 15 mg/dL (9.8-20.1); Bilirubin, Total 0.4 mg/dL (0.2-1.2); Calc. Creatinine Clearance 0 mL/min (70-130); Calcium 10.1 mg/dL (7.8-10.44); Carbon Dioxide 28 mmol/L (22-29); Chloride 101 mmol/L (98-107); Estimated GFR 88; Globulin 3.8 g/dL (2.4-3.5); Glucose 284 mg/dL (70-105); Lipase 44 U/L (8-78); Potassium 4.2 mmol/L (3.5-5.1); Protein, Total 8.1 g/dL (6.0-8.3); Sodium 139 mmol/L (136-145)
[2024-01-01 18:17] LABS: Bilirubin Negative (Negative); Blood, Urine Negative (Negative); Clarity Clear (Clear); Glucose, Urine (Dipstick) >=1000 mg/dL (Negative); Ketone, Urine Negative (Negative); Leukocyte Negative (Negative); Nitrite Negative (Negative); Protein, Urine (Dipstick) Negative (Neg-Trace); Specific Gravity, Urine 1.015 (1.005-1.030); Urobilinogen 0.2 mg/dL (Less than 2)
[2024-01-01 18:23] LABS: CAUTI Indications for Culture Pelvic or flank pain; Squamous Epithelial 0-3 HPF (0-3); Urine Culture Reflex No No; WBC/HPF None Seen HPF (0-3)
== END 2024-01-01 18:30 | disposition home or self-care (01) ==
LOC: NAV ERS 16:42
DX: S29.012A Strain of muscle and tendon of back wall of thorax, initial encounter (principal); X58.XXXA Exposure to other specified factors, initial encounter
CPT/HCPCS: 71046; 80053; 81001; 83690; 85025

== ENCOUNTER 2024-01-10 10:26 | Emergency (ER) | payer OTHER ==
[2024-01-10] MEDS ORDERED: guaiFENesin ER 600 MG TAB ONE (10:41)
[2024-01-10 20:50] LABS: SARS-CoV-2 N1 Negative; SARS-CoV-2 N2 Negative; SARS-CoV-2 RNAse P1 Positive; SARS-CoV-2 RNAse P2 Positive
== END 2024-01-10 11:29 | disposition home or self-care (01) ==
LOC: NAV ERS 10:26
DX: J06.9 Acute upper respiratory infection, unspecified (principal); J04.0 Acute laryngitis; R03.0 Elevated blood-pressure reading, without diagnosis of hypertension
CPT/HCPCS: 87081; 87430; 87635; 99283

== ENCOUNTER 2024-05-06 15:33 | Emergency (ER) | payer OTHER | END 2024-05-06 16:20 | disposition home or self-care (01) | LOC: NAV ERS 15:33 | DX: J06.9 Acute upper respiratory infection, unspecified (principal); K04.7 Periapical abscess without sinus; K02.9 Dental caries, unspecified; J45.909 Unspecified asthma, uncomplicated; Z79.899 Other long term (current) drug therapy | CPT/HCPCS: 99283 ==

== ENCOUNTER 2024-06-01 13:18 | Emergency (ER) | payer OTHER | END 2024-06-01 15:18 | disposition short-term general hospital (02) | LOC: NAV ERS 13:18 | DX: M79.604 Pain in right leg (principal); M79.89 Other specified soft tissue disorders | CPT/HCPCS: 36415; 85379; 99284 ==

== ENCOUNTER 2025-04-29 19:48 | Emergency (ER) | payer OTHER, SELFPAY ==
[2025-04-29] MEDS ORDERED: Aspirin Chewable 81 MG TAB ONE (20:40)
[2025-04-29] MEDS ORDERED: Famotidine/PF 20 mg/2ml Vial ONE (20:40)
[2025-04-29 20:46] LABS: ALT (SGPT) 20 U/L (Less than 34); AST (SGOT) 21 U/L (11-34); Albumin 4.3 g/dL (3.1-4.5); Alkaline Phosphatase 112 U/L (40-110); Anion Gap 13 mmol/L (10-20); BUN (Urea Nitrogen) 14 mg/dL (9.8-20.1); Bilirubin, Total 0.4 mg/dL (0.3-1.2); Calc. Creatinine Clearance 0 mL/min (70-130); Calcium 9.3 mg/dL (7.8-10.44); Carbon Dioxide 25 mmol/L (22-29); Chloride 103 mmol/L (98-107); Globulin 3.2 g/dL (2.4-3.5); Glucose 254 mg/dL (70-105); Lipase 37 U/L (8-78); Potassium 4.4 mmol/L (3.5-5.1); Sodium 137 mmol/L (136-145); Troponin I Less than 0.010 ng/mL (< 0.028)
[2025-04-29 20:48] LABS: Hematocrit 38.1 % (36.0-47.0); Hemoglobin 13.4 g/dL (12.0-16.0); Mean Corpuscular Hemoglobin 28.9 pg (27.0-31.0); Mean Corpuscular Volume 82.1 fl (78.0-98.0); Red Blood Cell (RBC) Count 4.64 mill/uL (4.20-5.40); White Blood Cell (WBC) Count 6.1 10x3/uL (4.8-10.8)
[2025-04-29 20:49] LABS: Platelet Adequacy Comment Appears Adequate; Platelet Count 168 10x3/uL (130-400)
[2025-04-29 23:37] LABS: Troponin I Less than 0.010 ng/mL (< 0.028)
== END 2025-04-30 00:01 | disposition home or self-care (01) ==
LOC: NAV ERS 19:48
DX: K21.9 Gastro-esophageal reflux disease without esophagitis (principal); J45.909 Unspecified asthma, uncomplicated; E11.9 Type 2 diabetes mellitus without complications; Z79.899 Other long term (current) drug therapy
CPT/HCPCS: 71045; 80053; 83690; 84484; 85025; 93005; 94760; 96374; J1308